=== PATIENT | female | born 1995 | race African-American/Black ===

== ENCOUNTER 2019-07-22 19:42 | Emergency (ER) | payer OTHER, BC ==
[~2019-07-22] VITALS: Ht 175.3 cm; Wt 76.7 kg
[2019-07-22 20:13] VITALS: Ht 175.3 cm; Wt 76.7 kg
[2019-07-22 22:41] VITALS: BP 114/51
== END 2019-07-22 22:41 | disposition home or self-care (01) ==
LOC: ED 19:42
DX: T78.40XA Allergy, unspecified, initial encounter (principal); X58.XXXA Exposure to other specified factors, initial encounter
CPT/HCPCS: J2930